=== PATIENT | female | born 1955 | race Caucasian/White ===

== ENCOUNTER 2024-10-05 20:27 | Inpatient (IN) | payer MEDICARE, OTHER ==
[~2024-10-05] VITALS: Ht 162.6 cm; Wt 99.3 kg
[~2024-10-05 20:27] MED LIST: ASPI-495 PO; ATEN50TA PO; CALC500T29 PO; ERGO500014 PO; GLIM4TAB PO; IBAN150T16 PO; LISI20TA30 PO; METF850T PO; SAXA2.5T PO; ZOLP5TAB2 PO
[2024-10-05 20:31] VITALS: O2SAT 99
[2024-10-05] MEDS ORDERED: ONDANSETRON HCL/PF 4 MG/2 ML VIAL ONE (20:54)
[2024-10-05] MEDS ORDERED: MORPHINE SULFATE INJ 4 MG/ML DISP.SYRIN ONE (20:55)
[2024-10-05] MEDS: MORPHINE SULFATE INJ 2 MG/ML DISP.SYRIN IV ONE (20:59)
[2024-10-05] MEDS: ONDANSETRON HCL/PF 4 MG/2 ML VIAL IVP ONE (20:59)
[2024-10-05 21:06] LABS: BASOPHILS # (AUTO) 0.1 K/uL (0.0-0.2); BASOPHILS % (AUTO) 0.5 % (0.0-2.0); EOSINOPHILS # (AUTO) 0.3 K/uL (0.0-0.7); EOSINOPHILS % (AUTO) 2.5 % (0.0-6.0); HEMATOCRIT 38 % (33-45); HEMOGLOBIN 11.9 g/dL (11.5-14.8); LYMPHOCYTES # (AUTO) 5.4 K/uL (0.8-4.8); LYMPHOCYTES % (AUTO) 47.2 % (20.0-44.0); MEAN CORPUSCULAR HEMOGLOBIN 25 PG (26.0-33.0); MEAN CORPUSCULAR HGB CONC 32 g/dl (31.0-36.0); MEAN CORPUSCULAR VOLUME 80 fL (82-100); MONOCYTES # (AUTO) 0.7 K/uL (0.1-1.30); MONOCYTES % (AUTO) 5.8 % (2.0-12.0); PLATELET COUNT (AUTO) 280 K/uL (150-450); RED BLOOD CELL COUNT(AUTO) 4.72 MIL/uL (4.0-5.2); RED CELL DISTRIBUTION WIDTH 16.5 % (11.5-15.0); WHITE BLOOD COUNT (AUTO) 11.3 K/uL (4.3-11.0)
[2024-10-05 21:13] LABS: CALCIUM, SERUM 9.9 mg/dL (8.5-10.1); CARBON DIOXIDE 29 mmol/L (21-32); CHLORIDE 100 mmol/L (98-107); CREATININE 0.8 mg/dL (0.6-1.3); GLUCOSE 206 mg/dL (74-106); POTASSIUM 4.1 mmol/L (3.5-5.1); SODIUM SERUM 136 mmol/L (136-145); UREA NITROGEN, BLOOD 15 mg/dL (7-18)
[2024-10-05 21:18] LABS: INR 0.99 (0.91-1.10); PARTIAL THROMBOPLASTIN TIME 24.4 SEC (24.3-34.3); PROTHROMBIN TIME 10.2 SECS (9.2-11.1)
[2024-10-05] MEDS ORDERED: MAGNESIUM HYDROXIDE 30 ML UDC PO PRN (21:30)
[2024-10-05] MEDS ORDERED: Z GUARD REMEDY 4 OZ OINT TP PRN (21:30)
[2024-10-05] MEDS ORDERED: MAG HYDROX/AL HYDROX/SIMETH 30 ML UDC PO PRN (21:30)
[2024-10-05] MEDS: ENOXAPARIN SODIUM 40 MG/0.4 ML DISP.SYRIN SQ SCH (22:00)
[2024-10-05 22:25] VITALS: BP 159/84; TEMP 98.2; O2SAT 95
[2024-10-05] MEDS: IV D5/0.45 NACL 1,000 ML IV PRN (23:16)
[2024-10-05] MEDS ORDERED: hydrALAZINE HCL IV 20 MG VIAL IV PRN (23:30)
[2024-10-05] MEDS ORDERED: DEXTROSE 50%-WATER 50 ML DISP.SYRIN IV PRN (23:30)
[2024-10-05] MEDS: BLOOD SUGAR DIAGNOSTIC 1 EACH STRIP IN SCH (23:58)
[2024-10-06] MEDS: INSULIN REGULAR, HUMAN 100 UNIT/ML 3 ML VIAL SQ PRN
[2024-10-06] MEDS: MORPHINE SULFATE INJ 2 MG/ML DISP.SYRIN IV PRN (01:35)
[2024-10-06 06:56] LABS: BASOPHILS % (AUTO) 0.2 % (0.0-2.0); EOSINOPHILS % (AUTO) 0.3 % (0.0-6.0); HEMATOCRIT 33 % (33-45); HEMOGLOBIN 10.9 g/dL (11.5-14.8); LYMPHOCYTES # (AUTO) 5.6 K/uL (0.8-4.8); LYMPHOCYTES % (AUTO) 40.5 % (20.0-44.0); MEAN CORPUSCULAR HEMOGLOBIN 26 PG (26.0-33.0); MEAN CORPUSCULAR HGB CONC 33 g/dl (31.0-36.0); MEAN CORPUSCULAR VOLUME 79 fL (82-100); MONOCYTES # (AUTO) 0.8 K/uL (0.1-1.30); MONOCYTES % (AUTO) 5.4 % (2.0-12.0); NEUTROPHILS # (AUTO) 7.5 K/uL (1.8-8.9); NEUTROPHILS % (AUTO) 53.6 % (43.0-81.0); PLATELET COUNT (AUTO) 268 K/uL (150-450); RED CELL DISTRIBUTION WIDTH 16.8 % (11.5-15.0); WHITE BLOOD COUNT (AUTO) 13.9 K/uL (4.3-11.0)
[2024-10-06 07:08] LABS: CALCIUM, SERUM 9.9 mg/dL (8.5-10.1); CREATININE 0.7 mg/dL (0.6-1.3); MAGNESIUM 1.8 mg/dL (1.8-2.4); PHOSPHORUS 3.4 mg/dL (2.5-4.9)
[2024-10-06 07:10] LABS: INR 1.01 (0.91-1.10); PARTIAL THROMBOPLASTIN TIME 27.3 SEC (24.3-34.3); PROTHROMBIN TIME 10.7 SECS (9.2-11.1)
[2024-10-06] MEDS ORDERED: BRIM5DRO2 EACHEYE (07:47)
[2024-10-06] MEDS ORDERED: GABA300C PO (07:47)
[2024-10-06] MEDS ORDERED: PRED5DRO16 EACHEYE (07:47)
[2024-10-06] MEDS ORDERED: ATEN25TA PO (07:47)
[2024-10-06] MEDS ORDERED: LOSA100T31 PO (07:47)
[2024-10-06] MEDS ORDERED: CHOL500062 PO (07:47)
[2024-10-06] MEDS ORDERED: MECL-159 MT (07:47)
[2024-10-06] MEDS ORDERED: SITA1TAB6 PO (07:47)
[2024-10-06] MEDS ORDERED: METF-867 PO (07:47)
[2024-10-06 08:00] VITALS: BP 146/68; TEMP 99.5; O2SAT 94
[2024-10-06 08:29] LABS: THYROID STIMULATING HORMONE 1.11 uIU/mL (0.358-3.74)
[2024-10-06] MEDS ORDERED: BUPIVACAINE 0.25% 75 MG/30 ML VIAL ONE (08:57)
[2024-10-06] MEDS ORDERED: POLYMYXIN B SULFATE 0 UNITS ONE (08:57)
[2024-10-06] MEDS: BRIMONIDINE TARTRATE OPHT SOLN 5 ML BOTTLE EACHEYE SCH (09:00)
[2024-10-06] MEDS: GABAPENTIN 300 MG CAPSULE PO SCH (09:00)
[2024-10-06] MEDS: LINAGLIPTIN 5 MG TABLET PO SCH (09:00)
[2024-10-06] MEDS: PANTOPRAZOLE 40 MG VIAL IV SCH (09:00)
[2024-10-06] MEDS: TIMOLOL 0.5% SOLN OPHTH 5 ML BOTTLE OP SCH (09:00)
[2024-10-06] MEDS ORDERED: ROCURONIUM BROMIDE 50 MG/5 ML ONE (09:18)
[2024-10-06 09:44] LABS: THYROID STIMULATING HORMONE 1.13 uIU/mL (0.358-3.74)
[2024-10-06] MEDS ORDERED: LABETALOL HCL IV 100MG VIAL ONE (09:56)
[2024-10-06] MEDS ORDERED: VANCOMYCIN 1 GM VIAL ONE (10:00)
[2024-10-06] MEDS ORDERED: TRANEXAMIC ACID 1,000 MG/10 ML VIAL ONE (10:00)
[2024-10-06] MEDS: prednisoLONE ACET 1% OPHT DROP 5 ML BOTTLE EACHEYE SCH (12:38)
[2024-10-06] MEDS ORDERED: INSULIN REGULAR, HUMAN 100 UNIT/ML 10 ML VIAL ONE (13:11)
[2024-10-06 13:21] LABS: HEMOGLOBIN 10.3 g/dL (11.5-14.8)
[2024-10-06 16:00] VITALS: BP 122/64; TEMP 98.2; O2SAT 96
[2024-10-06] MEDS: CEFAZOLIN 2 GM in IV D5W 100 ML IV SCH (17:17)
[2024-10-06] MEDS: GLIMEPIRIDE 4 MG TABLET PO SCH (17:29)
[2024-10-06] MEDS: METHOCARBAMOL (500MG) 500 MG TABLET PO SCH (17:30)
[2024-10-06] MEDS: METFORMIN 500 MG TABLET PO SCH (17:30)
[2024-10-06] MEDS: LOSARTAN POTASSIUM 50 MG TABLET PO SCH (17:31)
[2024-10-06 20:00] VITALS: BP 115/47; TEMP 97.9; O2SAT 93
[2024-10-07] MEDS: ZOLPIDEM TARTRATE 5 MG TABLET PO PRN (00:30)
[2024-10-07 07:26] LABS: BASOPHILS % (AUTO) 0.2 % (0.0-2.0); EOSINOPHILS # (AUTO) 0.1 K/uL (0.0-0.7); EOSINOPHILS % (AUTO) 0.3 % (0.0-6.0); HEMATOCRIT 28 % (33-45); HEMOGLOBIN 9.1 g/dL (11.5-14.8); LYMPHOCYTES # (AUTO) 6.5 K/uL (0.8-4.8); LYMPHOCYTES % (AUTO) 41.6 % (20.0-44.0); MEAN CORPUSCULAR HEMOGLOBIN 26 PG (26.0-33.0); MEAN CORPUSCULAR HGB CONC 32 g/dl (31.0-36.0); MEAN CORPUSCULAR VOLUME 79 fL (82-100); MONOCYTES # (AUTO) 0.8 K/uL (0.1-1.30); MONOCYTES % (AUTO) 5.3 % (2.0-12.0); NEUTROPHILS # (AUTO) 8.3 K/uL (1.8-8.9); NEUTROPHILS % (AUTO) 52.6 % (43.0-81.0); PLATELET COUNT (AUTO) 261 K/uL (150-450); RED BLOOD CELL COUNT(AUTO) 3.56 MIL/uL (4.0-5.2); WHITE BLOOD COUNT (AUTO) 15.7 K/uL (4.3-11.0)
[2024-10-07 07:30] VITALS: BP 151/72; TEMP 98.8; O2SAT 92
[2024-10-07 07:50] LABS: ALANINE AMINOTRANSFERASE 13 U/L (12-78); ALBUMIN 3.1 g/dL (3.4-5.0); ALKALINE PHOSPHATASE 61 U/L (46-116); ASPARTATE AMINOTRANSFERASE 15 U/L (15-37); BILIRUBIN,TOTAL 0.4 mg/dL (0.2-1.0); CARBON DIOXIDE 28 mmol/L (21-32); CHLORIDE 102 mmol/L (98-107); CREATININE 0.7 mg/dL (0.6-1.3); GLUCOSE 163 mg/dL (74-106); MAGNESIUM 1.6 mg/dL (1.8-2.4); PHOSPHORUS 2.5 mg/dL (2.5-4.9); POTASSIUM 3.7 mmol/L (3.5-5.1); SODIUM SERUM 137 mmol/L (136-145); TOTAL PROTEIN, SERUM 6.9 g/dL (6.4-8.2); UREA NITROGEN, BLOOD 19 mg/dL (7-18)
[2024-10-07] MEDS: ATORVASTATIN 10 MG TABLET PO SCH (08:59)
[2024-10-07] MEDS: METFORMIN XR 500 MG TAB.SR.24H PO SCH (09:00)
[2024-10-07] MEDS: ONDANSETRON HCL/PF 4 MG/2 ML VIAL IVP PRN (10:04)
[2024-10-07] MEDS: MAGNESIUM OXIDE 400 MG TABLET PO ONE (10:05)
[2024-10-07] MEDS: SOD FERRIC GLUC 125 MG in IV NS 0.9% 100 ML IV SCH (14:25)
[2024-10-07] MEDS: ENOXAPARIN SODIUM 40 MG/0.4 ML DISP.SYRIN SQ SCH (14:27)
[2024-10-07] MEDS: ACETAMINOPHEN 325 MG TABLET PO PRN (15:46)
[2024-10-07 16:00] VITALS: BP 137/65; TEMP 100.8; O2SAT 90
[2024-10-07 18:51] LABS: APPEARANCE,URINE CLEAR (CLEAR); BILIRUBIN,URINE NEGATIVE (NEGATIVE); BLOOD, URINE 3+ Ery/uL (NEGATIVE); COLOR,URINE YELLOW (YELLOW); KETONES,URINE NEGATIVE (NEGATIVE); LEUKOCYTE ESTERASE ,URINE TRACE (NEGATIVE); NITRITE, URINE NEGATIVE (NEGATIVE); PROTEIN,URINE NEGATIVE (NEGATIVE); UGLUCOSE NEGATIVE (NEGATIVE); UROBILINOGEN,URINE 0.2 EU/dL (0.2)
[2024-10-07 18:57] LABS: ADD URINE CULTURE NO; BACTERIA,URINE Rare /HPF (None Seen); SQUAMOUS EPITHELIAL CELL,UR 0-2 /HPF (None Seen)
[2024-10-07 20:00] VITALS: BP 124/44; TEMP 98.4; O2SAT 95
[2024-10-08 06:48] LABS: BASOPHILS % (AUTO) 0.2 % (0.0-2.0); EOSINOPHILS # (AUTO) 0.1 K/uL (0.0-0.7); EOSINOPHILS % (AUTO) 0.5 % (0.0-6.0); HEMATOCRIT 26 % (33-45); HEMOGLOBIN 8.3 g/dL (11.5-14.8); LYMPHOCYTES # (AUTO) 6.9 K/uL (0.8-4.8); MEAN CORPUSCULAR HEMOGLOBIN 26 PG (26.0-33.0); MEAN CORPUSCULAR HGB CONC 32 g/dl (31.0-36.0); MEAN CORPUSCULAR VOLUME 79 fL (82-100); MONOCYTES # (AUTO) 1.2 K/uL (0.1-1.30); MONOCYTES % (AUTO) 7.4 % (2.0-12.0); NEUTROPHILS # (AUTO) 7.5 K/uL (1.8-8.9); NEUTROPHILS % (AUTO) 47.9 % (43.0-81.0); PLATELET COUNT (AUTO) 241 K/uL (150-450); RED BLOOD CELL COUNT(AUTO) 3.26 MIL/uL (4.0-5.2); RED CELL DISTRIBUTION WIDTH 16.4 % (11.5-15.0); WHITE BLOOD COUNT (AUTO) 15.6 K/uL (4.3-11.0)
[2024-10-08 07:30] VITALS: BP 131/58; TEMP 99; O2SAT 90
[2024-10-08 07:37] LABS: CALCIUM, SERUM 9.2 mg/dL (8.5-10.1); CREATININE 0.6 mg/dL (0.6-1.3); POTASSIUM 3.8 mmol/L (3.5-5.1)
[2024-10-08] MEDS: PANTOPRAZOLE 40 MG TABLET.DR PO SCH (09:07)
[2024-10-08] MEDS: ATENOLOL 25 MG TABLET PO PRN (09:08)
[2024-10-08] MEDS ORDERED: Morphine Sulfate Inj IV (11:17)
[2024-10-08] MEDS ORDERED: SOD62.5V IV (11:17)
[2024-10-08] MEDS ORDERED: TIMO5DRO18 OP (11:17)
[2024-10-08] MEDS ORDERED: ZOLP5TAB8 PO (11:17)
[2024-10-08] MEDS ORDERED: ATOR10TA PO (11:17)
[2024-10-08] MEDS ORDERED: ENOX40DI SQ (11:17)
[2024-10-08] MEDS ORDERED: PANT40TA49 PO (11:17)
[2024-10-08] MEDS ORDERED: ONDA4VIA23 IVP (11:17)
[2024-10-08] MEDS ORDERED: METH500T6 PO (11:17)
[2024-10-08] MEDS ORDERED: LINA5TAB PO (11:17)
[2024-10-08 16:00] VITALS: BP_SYST 130; BP_SYST 145; BP_DIAS 57; BP_DIAS 65; TEMP 98.1; TEMP 98.4; O2SAT 92; O2SAT 97
[2024-10-08 17:51] VITALS: BP 131/58
== END 2024-10-08 18:10 | DRG 482 ==
LOC: ER 20:29 → MED 21:50
PROVIDERS: ADMIT Student in an Organized Health Care Education/Training Program; ATTEND Nurse Practitioner Family
PROC: 0QS606Z Reposition Right Upper Femur with Intramedullary Internal Fixation Device, Open Approach (ICD-10-PCS; principal; 2024-10-05)
DX: S72.141A Displaced intertrochanteric fracture of right femur, initial encounter for closed fracture (principal); G47.33 Obstructive sleep apnea (adult) (pediatric); E11.9 Type 2 diabetes mellitus without complications; Y92.008 Other place in unspecified non-institutional (private) residence as the place of occurrence of the external cause; I10 Essential (primary) hypertension; Z79.82 Long term (current) use of aspirin; Z79.84 Long term (current) use of oral hypoglycemic drugs; Z79.899 Other long term (current) drug therapy; E78.5 Hyperlipidemia, unspecified; D72.829 Elevated white blood cell count, unspecified; Z86.61 Personal history of infections of the central nervous system; E66.812 Obesity, class 2; M81.0 Age-related osteoporosis without current pathological fracture; Z68.30 Body mass index [BMI] 30.0-30.9, adult; S72.21XA Displaced subtrochanteric fracture of right femur, initial encounter for closed fracture; W10.9XXA Fall (on) (from) unspecified stairs and steps, initial encounter; R79.89 Other specified abnormal findings of blood chemistry
CPT/HCPCS: 36415; 71045-TC; 72192-TC; 73502; 73552; 73560-TC; 80048-TC; 80053-TC; 80061-TC; 81001; 82728-TC; 82962-TC; 83540-TC; 83735-TC; 84100-TC; 84439-TC; 84443-TC; 84484-TC; 85025-TC; 85027-TC; 85610-TC; 85730-TC; 86850-TC; 87040-TC; 93307-TC; 97110-TC; 97116-TC; 97530-TC; A4223; G0378; J0690; J1650; J1815; J2270; J2405; J2470; J2704; J2916; J3370; J3490; J7030; J7050; J7060

== ENCOUNTER 2025-03-29 14:36 | Emergency (ER) | payer MEDICARE, OTHER ==
[~2025-03-29] VITALS: Ht 160 cm; Wt 104.3 kg
[~2025-03-29 14:36] MED LIST changes: -ASPI-495 PO; +ATEN25TA PO; -ATEN50TA PO; +ATOR10TA PO; +BRIM5DRO2 EACHEYE; -CALC500T29 PO; +CHOL500062 PO; +ENOX40DI SQ; -ERGO500014 PO; +GABA300C PO; +LINA5TAB PO; -LISI20TA30 PO; +LOSA100T31 PO; +MECL-159 MT; +METF-867 PO; -METF850T PO; +METH500T6 PO; +Morphine Sulfate Inj IV; +ONDA4VIA23 IVP; +PANT40TA49 PO; +PRED5DRO16 EACHEYE; -SAXA2.5T PO; +SITA1TAB6 PO; +SOD62.5V IV; +TIMO5DRO18 OP; -ZOLP5TAB2 PO; +ZOLP5TAB8 PO
[2025-03-29 16:04] LABS: CALCIUM, SERUM 10.8 mg/dL (8.5-10.1); CREATININE 0.8 mg/dL (0.6-1.3); SODIUM SERUM 139 mmol/L (136-145); UREA NITROGEN, BLOOD 18 mg/dL (7-18)
[2025-03-29 16:07] LABS: PLATELET COUNT (AUTO) 262 K/uL (150-450); RED BLOOD CELL COUNT(AUTO) 4.48 MIL/uL (4.0-5.2); RED CELL DISTRIBUTION WIDTH 17.2 % (11.5-15.0); WHITE BLOOD COUNT (AUTO) 11.3 K/uL (4.3-11.0)
[2025-03-29 16:17] LABS: ASPARTATE AMINOTRANSFERASE 17.0 U/L (15-37); NT-PRO BNP 175.0 pg/mL (0-125); TOTAL PROTEIN, SERUM 8.2 g/dL (6.4-8.2)
[2025-03-29 17:15] VITALS: BP 138/78; TEMP 98.2; O2SAT 98
== END 2025-03-29 17:18 | disposition home or self-care (01) ==
LOC: ER 14:41
DX: M79.89 Other specified soft tissue disorders (principal); I10 Essential (primary) hypertension; R06.02 Shortness of breath; E11.9 Type 2 diabetes mellitus without complications; Z79.84 Long term (current) use of oral hypoglycemic drugs; Z79.899 Other long term (current) drug therapy
CPT/HCPCS: 36415; 71045-TC; 80048-TC; 80076-TC; 83880; 84484-TC; 85025-TC; 93970-TC